=== PATIENT | female | born 1985 | race American Indian/Alaskan Native ===

== ENCOUNTER 2017-08-05 16:31 | Emergency (ER) | payer SELFPAY ==
[2017-08-05 17:57] LABS: Basophils % (Auto) 0.3 % (0.0-1.8); Eosinophils % (Auto) 7.2 % (0.0-4.3); Hematocrit 39.3 % (30.3-42.9); Hemoglobin 13.6 gm/dl (10.1-14.3); Mean Corpuscular HGB Conc 35 % (30-34); Mean Corpuscular Hemoglobin 32 pg (28-32); Mean Corpuscular Volume 92 fl (79-97); Platelet Count 199 K/mm3 (140-440); Red Blood Count 4.27 M/mm3 (3.65-5.03); Red Cell Distribution Width 12.9 % (13.2-15.2); White Blood Count 6.9 K/mm3 (4.5-11.0)
[2017-08-05 18:14] LABS: Alanine Aminotransferase 18 units/L (7-56); Albumin 3.7 g/dL (3.9-5); Albumin/Globulin Ratio 1.3 %; Alkaline Phosphatase 70 units/L (35-129); BUN/Creatinine Ratio 11.66; Blood Urea Nitrogen 7 mg/dL (7-17); Calcium 8.7 mg/dL (8.4-10.2); Carbon Dioxide 23 mmol/L (22-30); Glucose 79 mg/dL (65-100); Total Protein 6.5 g/dL (6.3-8.2)
[2017-08-05] MEDS ORDERED: KEPPRA 1,000 MG in D5W 100 ML IV STA (18:14)
[2017-08-05 18:15] LABS: Anion Gap 16 mmol/L; Chloride 107.3 mmol/L (98-107); Potassium 4.1 mmol/L (3.6-5.0); Sodium 142 mmol/L (137-145)
--- NOTE | 2017-08-05 18:16 | Emergency Department Report ---
ED Seizure HPI - General Chief Complaint: Seizure Stated Complaint: SEIZURES/LUPUS/ASTHMA Time Seen by Provider: 08/05/17 18:09 Source: patient, family, EMS (ems notes not available at time of chart dictation), RN notes reviewed Mode of arrival: [facility] Limitations: No Limitations, Other (patient is a poor historian) - History of Present Illness Initial Comments: This is a 32-year-old female, the patient is previously unknown to me. Patient brought to the hospital by EMS for multiple seizures. As per family and EMS, patient's had 7 seizures today. EMS gave Ativan and Versed in the field. Initially upon arrival to the ER, the patient was sleepy and very good historian. She reports that she recently arrived here from [place], and thinks that she takes keppra. She is not certain what other medication she takes, and her family does not know a medication she takes. The patient complains of mild total body pain. MD Complaint: seizure, shaking -: Sudden Description of Episode: loss of consciousness, tonic-clonic movement -: second(s) Witnessed:: Yes Trauma: No (as per family, and as per EMS) Seizure History: known seizure disorder, history of non-compliance (as per EMS) Possible Precipitating Event: other (medication noncompliance) Associated Symptoms: confusion (initially after seizure) Treatments Prior to Arrival: benzodiazepines - Related Data Home Medications Medication Instructions Recorded Confirmed Last Taken ALBUTEROL Inhaler [Proair] 2 puff IH QID PRN 08/05/17 08/05/17 Unknown Citalopram [celeXA] 20 mg PO BID 08/05/17 08/05/17 08/05/17 Fluticasone/Salmeterol [Advair 1 puff IH BID 08/05/17 08/05/17 08/05/17 Diskus 500-50 mcg] Gabapentin [Neurontin] 300 mg PO BID 08/05/17 08/05/17 08/05/17 Multivitamin Tab [Multiple Vitamin 1 each PO QDAY 08/05/17 08/05/17 08/05/17 TAB (Theragran)] Previous Rx's Medication Instructions Recorded Last Taken Type Topiramate [Topamax] 100 mg PO BID #60 tablet 08/05/17 Unknown Rx Allergies Allergy/AdvReac Type Severity Reaction Status Date / Time carbamazepine [From Tegretol] Allergy Unknown Verified 08/05/17 20:20 latex Allergy Unknown Verified 08/05/17 20:20 Penicillins Allergy Unknown Verified 08/05/17 20:20 ED Review of Systems ROS: Stated complaint: SEIZURES/LUPUS/ASTHMA Other details as noted in HPI Constitutional: malaise, weakness Eyes: denies: vision change ENT: denies: epistaxis Respiratory: denies: cough Cardiovascular: denies: chest pain Genitourinary: denies: dysuria Musculoskeletal: back pain, arthralgia, myalgia Neurological: weakness Psychiatric: as per HPI ED Past Medical Hx - Past Medical History Previous Medical History?: Yes Hx Seizures: Yes Hx Asthma: Yes Additional medical history: Lupus - Surgical History Past Surgical History?: No - Social History Smoking Status: Current Every Day Smoker Substance Use Type: None - Medications Home Medications: Home Medications Medication Instructions Recorded Confirmed Last Taken Type ALBUTEROL Inhaler [Proair] 2 puff IH QID PRN 08/05/17 08/05/17 Unknown History Citalopram [celeXA] 20 mg PO BID 08/05/17 08/05/17 08/05/17 History Fluticasone/Salmeterol [Advair 1 puff IH BID 08/05/17 08/05/17 08/05/17 History Diskus 500-50 mcg] Gabapentin [Neurontin] 300 mg PO BID 08/05/17 08/05/17 08/05/17 History Multivitamin Tab [Multiple Vitamin 1 each PO QDAY 08/05/17 08/05/17 08/05/17 History TAB (Theragran)] Topiramate [Topamax] 100 mg PO BID #60 tablet 08/05/17 Unknown Rx ED Physical Exam - General Limitations: No Limitations General appearance: alert, in no apparent distress - Head Head exam: Present: atraumatic, normocephalic - Eye Eye exam: Present: normal appearance, PERRL, EOMI. Absent: nystagmus - ENT ENT exam: Present: normal exam, normal orophraynx, mucous membranes moist, normal external ear exam, other (there is no tongue biting or tongue laceration) - Neck Neck exam: Present: normal inspection, full ROM. Absent: tenderness, meningismus - Respiratory Respiratory exam: Present: normal lung sounds bilaterally. Absent: respiratory distress, wheezes, rales, rhonchi, stridor, chest wall tenderness, accessory muscle use, decreased breath sounds, prolonged expiratory - Cardiovascular Cardiovascular Exam: Present: regular rate, normal rhythm, normal heart sounds. Absent: bradycardia, tachycardia, irregular rhythm, systolic murmur, diastolic murmur, rubs, gallop - GI/Abdominal GI/Abdominal exam: Present: soft, normal bowel sounds. Absent: distended, tenderness, guarding, rebound, rigid, pulsatile mass - Extremities Exam Extremities exam: Present: normal inspection, full ROM, normal capillary refill. Absent: pedal edema, joint swelling, calf tenderness - Back Exam Back exam: Present: normal inspection, full ROM. Absent: tenderness, CVA tenderness (R), CVA tenderness (L), muscle spasm, paraspinal tenderness, vertebral tenderness - Neurological Exam Neurological exam: Present: alert, oriented X3, normal gait, other (Extraocular movements intact. Tongue midline. No facial droop. Facial sensation intact to light touch in the V1, V2, V3 distribution bilaterally. 5 and 5 strength in 4 extremities.. Sensation is intact to light touch in 4 extremities.). Absent : motor sensory deficit - Psychiatric Psychiatric exam: Present: anxious - Skin Skin exam: Present: warm, dry, intact, normal color. Absent: rash ED Course Vital Signs 08/05/17 08/05/17 08/05/17 16:33 16:52 17:00 Temperature 99 F Pulse Rate 60 55 L 55 L Respiratory 18 16 17 Rate Blood Pressure 96/57 Blood Pressure [Right] O2 Sat by Pulse 99 100 100 Oximetry 08/05/17 08/05/17 08/05/17 17:15 17:31 17:45 Temperature Pulse Rate 57 L 48 L 55 L Respiratory 16 21 16 Rate Blood Pressure Blood Pressure [Right] O2 Sat by Pulse 97 99 97 Oximetry 08/05/17 08/05/17 08/05/17 18:01 18:15 18:31 Temperature Pulse Rate 54 L 46 L 56 L Respiratory 16 14 16 Rate Blood Pressure Blood Pressure [Right] O2 Sat by Pulse 97 99 97 Oximetry 08/05/17 08/05/17 08/05/17 18:45 19:01 19:15 Temperature Pulse Rate 58 L 50 L 53 L Respiratory 15 12 10 L Rate Blood Pressure 135/87 Blood Pressure [Right] O2 Sat by Pulse Oximetry 08/05/17 08/05/17 08/05/17 19:30 19:40 19:45 Temperature Pulse Rate 58 L 66 67 Respiratory 17 20 14 Rate Blood Pressure 128/82 126/92 Blood Pressure 126/92 [Right] O2 Sat by Pulse 99 97 Oximetry 08/05/17 08/05/17 08/05/17 20:01 20:15 20:30 Temperature Pulse Rate 55 L Respiratory 15 Rate Blood Pressure 114/67 128/61 121/71 Blood Pressure [Right] O2 Sat by Pulse 97 99 98 Oximetry 08/05/17 08/05/17 08/05/17 20:45 21:00 21:15 Temperature Pulse Rate Respiratory Rate Blood Pressure 124/63 118/59 116/64 Blood Pressure [Right] O2 Sat by Pulse 96 96 95 Oximetry 08/05/17 08/05/17 08/05/17 21:30 21:45 22:00 Temperature Pulse Rate 55 L Respiratory 20 Rate Blood Pressure 119/64 125/74 127/74 Blood Pressure 127/74 [Right] O2 Sat by Pulse 96 95 96 Oximetry 08/05/17 08/05/17 08/05/17 22:15 22:30 22:45 Temperature Pulse Rate Respiratory Rate Blood Pressure 122/64 126/75 136/74 Blood Pressure [Right] O2 Sat by Pulse 97 97 98 Oximetry 08/05/17 08/05/17 08/05/17 23:01 23:15 23:31 Temperature Pulse Rate Respiratory Rate Blood Pressure 125/63 123/62 136/74 Blood Pressure [Right] O2 Sat by Pulse 99 98 98 Oximetry - Reevaluation(s) Reevaluation #1: 08/05/17 22:37 Patient was able to give the nurse's list of her medications. Given history of poor compliance, I will amend my original plan and only refill Topamax. Patient counseled to follow-up as directed. ED Medical Decision Making - Lab Data Result diagrams: 08/05/17 17:32 08/05/17 17:32 Vital Signs 08/05/17 08/05/17 08/05/17 16:33 16:52 17:00 Temperature 99 F Pulse Rate 60 55 L 55 L Respiratory 18 16 17 Rate Blood Pressure 96/57 Blood Pressure [Right] O2 Sat by Pulse 99 100 100 Oximetry 08/05/17 08/05/17 08/05/17 17:15 17:31 17:45 Temperature Pulse Rate 57 L 48 L 55 L Respiratory 16 21 16 Rate Blood Pressure Blood Pressure [Right] O2 Sat by Pulse 97 99 97 Oximetry 08/05/17 08/05/17 08/05/17 18:01 18:15 18:31 Temperature Pulse Rate 54 L 46 L 56 L Respiratory 16 14 16 Rate Blood Pressure Blood Pressure [Right] O2 Sat by Pulse 97 99 97 Oximetry 08/05/17 08/05/17 08/05/17 18:45 19:01 19:15 Temperature Pulse Rate 58 L 50 L 53 L Respiratory 15 12 10 L Rate Blood Pressure 135/87 Blood Pressure [Right] O2 Sat by Pulse Oximetry 08/05/17 08/05/17 08/05/17 19:30 19:40 19:45 Temperature Pulse Rate 58 L 66 67 Respiratory 17 20 14 Rate Blood Pressure 128/82 126/92 Blood Pressure 126/92 [Right] O2 Sat by Pulse 99 97 Oximetry 08/05/17 08/05/17 08/05/17 20:01 20:15 20:30 Temperature Pulse Rate 55 L Respiratory 15 Rate Blood Pressure 114/67 128/61 121/71 Blood Pressure [Right] O2 Sat by Pulse 97 99 98 Oximetry 08/05/17 08/05/17 08/05/17 20:45 21:00 21:15 Temperature Pulse Rate Respiratory Rate Blood Pressure 124/63 118/59 116/64 Blood Pressure [Right] O2 Sat by Pulse 96 96 95 Oximetry 08/05/17 08/05/17 21:30 22:00 Temperature Pulse Rate 55 L Respiratory 20 Rate Blood Pressure 119/64 Blood Pressure 127/74 [Right] O2 Sat by Pulse 96 98 Oximetry Labs 08/05/17 08/05/17 08/05/17 17:32 17:32 18:47 WBC 6.9 RBC 4.27 Hgb 13.6 Hct 39.3 MCV 92 MCH 32 MCHC 35 H RDW 12.9 L Plt Count 199 Lymph % (Auto) 32.2 [place] % (Auto) 8.2 H Eos % (Auto) 7.2 H Baso % (Auto) 0.3 Lymph # 2.2 [place] # 0.6 Eos # 0.5 H Baso # 0.0 Seg Neutrophils % 52.1 Seg Neutrophils # 3.6 Sodium 142 Potassium 4.1 Chloride 107.3 H Carbon Dioxide 23 Anion Gap 16 BUN 7 Creatinine 0.6 L Estimated GFR > 60 BUN/Creatinine Ratio 11.66 Glucose 79 Calcium 8.7 Total Bilirubin 0.60 AST 21 ALT 18 Alkaline Phosphatase 70 Total Creatine Kinase 481 H Total Protein 6.5 Albumin 3.7 L Albumin/Globulin Ratio 1.3 HCG, Quant Urine Color Urine Turbidity Urine pH Ur Specific [place] Urine Protein Urine Glucose (UA) Urine Ketones Urine Blood Urine Nitrite Ur Reducing Substances Urine Bilirubin Urine Ictotest Urine Urobilinogen Ur Leukocyte Esterase Urine WBC (Auto) Urine RBC (Auto) U Epithel Cells (Auto) Urine Mucus Urine HCG, Qual Salicylates Acetaminophen 08/05/17 08/05/17 08/05/17 18:47 18:47 18:47 WBC RBC Hgb Hct MCV MCH MCHC RDW Plt Count Lymph % (Auto) [place] % (Auto) Eos % (Auto) Baso % (Auto) Lymph # [place] # Eos # Baso # Seg Neutrophils % Seg Neutrophils # Sodium Potassium Chloride Carbon Dioxide Anion Gap BUN Creatinine Estimated GFR BUN/Creatinine Ratio Glucose Calcium Total Bilirubin AST ALT Alkaline Phosphatase Total Creatine Kinase Total Protein Albumin Albumin/Globulin Ratio HCG, Quant < 2 Urine Color Urine Turbidity Urine pH Ur Specific [place] Urine Protein Urine Glucose (UA) Urine Ketones Urine Blood Urine Nitrite Ur Reducing Substances Urine Bilirubin Urine Ictotest Urine Urobilinogen Ur Leukocyte Esterase Urine WBC (Auto) Urine RBC (Auto) U Epithel Cells (Auto) Urine Mucus Urine HCG, Qual Salicylates < 0.3 L Acetaminophen < 15.0 08/05/17 20:22 WBC RBC Hgb Hct MCV MCH MCHC RDW Plt Count Lymph % (Auto) [place] % (Auto) Eos % (Auto) Baso % (Auto) Lymph # [place] # Eos # Baso # Seg Neutrophils % Seg Neutrophils # Sodium Potassium Chloride Carbon Dioxide Anion Gap BUN Creatinine Estimated GFR BUN/Creatinine Ratio Glucose Calcium Total Bilirubin AST ALT Alkaline Phosphatase Total Creatine Kinase Total Protein Albumin Albumin/Globulin Ratio HCG, Quant Urine Color Yellow Urine Turbidity Clear Urine pH 5.0 Ur Specific [place] 1.021 Urine Protein <15 mg/dl Urine Glucose (UA) Neg Urine Ketones Neg Urine Blood Neg Urine Nitrite Neg Ur Reducing Substances Not Reportable Urine Bilirubin Neg Urine Ictotest Not Reportable Urine Urobilinogen < 2.0 Ur Leukocyte Esterase Neg Urine WBC (Auto) 1.0 Urine RBC (Auto) 4.0 U Epithel Cells (Auto) 2.0 Urine Mucus Few Urine HCG, Qual Negative Salicylates Acetaminophen - Radiology Data Radiology results: report reviewed, image reviewed Noncontrast CT scan of the brain is negative. X-ray the chest is negative. - Medical Decision Making Differential diagnosis: Pneumonia, urinary tract infection, post ictal state, medication noncompliance, myositis Assessment and plan: 32-year-old female with reported history of multiple seizures. She is initially postictal, and is loaded with 1 g of Keppra. Patient observed in the ER for prolonged period of time without clinical decompensation. No additional seizures noted in the emergency department, patient currently clinically sober, walks with a steady gait, has a GCS of 15, with an NIH score of 0. I will discharge the patient with a one-month prescription for antiepileptic drugs, she is instructed to follow up with outpatient primary care doctor or neurology specialist as soon as possible, and the patient is instructed to not drive or operate motor vehicles for the next 6 months. Critical care attestation.: If time is entered above; I have spent that time in minutes in the direct care of this critically ill patient, excluding procedure time. ED Disposition Clinical Impression: Seizure Disposition: [id number] TO HOME OR SELFCARE Is pt being admited?: No Does the pt Need Aspirin: No Condition: Stable Instructions: Recurrent Seizures Adult (ED) Additional Instructions: Take the medication as directed. Follow up with an outpatient primary care doctor or neurology specialist within the next 7-10 [address] a car or operate motor vehicles for the next 6 months. It is very important to follow -up with an outpatient specialist or primary care doctor as directed for maintenance of antiepileptic drug therapy, and it is important to know that noncompliance and not taking your seizure medication may result in breakthrough seizure, which in turn can cause , disability, paralysis, loss of quality of life. Return to the ER right away with new pain, worsened pain, migration of pain, fevers, chills, confusion, intractable nausea or vomiting, inability to tolerate liquid feeds. Prescriptions: Topiramate [Topamax] 100 mg PO BID #60 tablet Referrals: PRIMARY MD JUAN [Primary Care Provider] - 3-5 Days GLORIA LATHAM MD [Staff Physician] - 3-5 Days DEYSI LIZ MD [Staff Physician] - 3-5 Days AASHISH HUITRON MD [Staff Physician] - 3-5 Days TERENCE NASH MD [Staff Physician] - 3-5 Days
[2017-08-05] MEDS ORDERED: KEPPRA 1,000 MG/NS 0.75% 100ML 1,000 MG/100 ML BAG IV STA (18:17)
--- NOTE | 2017-08-05 20:37 | Cat Scan Report ---
FINAL REPORT EXAM: CT HEAD/BRAIN WO CON HISTORY: seizure ams TECHNIQUE: Noncontrast CT axial images of the brain. PRIORS: None. FINDINGS: No parenchymal mass, mass effect, hemorrhage, midline shift or hydrocephalus. No evidence of acute cortical infarct. No abnormal, extra-axial fluid or air collection. Osseous calvarium grossly intact. Mucosal thickening in the ethmoid sinuses. IMPRESSION: 1. No acute intracranial findings.
[2017-08-05 20:55] LABS: Bilirubin,Urine NEG (Negative); Blood,Urine NEG (Negative); Ketones,Urine NEG (Negative); Leukocyte Esterase,Urine NEG (Negative); Mucus,Urine FEW /HPF; Nitrite,Urine NEG (Negative); Protein,Urine <15 mg/dL mg/dL (Negative); Urobilinogen,Urine < 2.0 mg/dL (<2.0)
[2017-08-05] MEDS ORDERED: TOPAMAX PO ONE (22:37)
[2017-08-05 23:44] VITALS: BP 136/74
--- NOTE | 2017-08-06 10:19 | XRay Report ---
AP CHEST :08/05/17 16:31:00 CLINICAL: Seizure. COMPARISON:None. FINDINGS: Normal heart and pulmonary vasculature. The lungs are normally expanded and clear. The bones and soft tissues are normal. IMPRESSION: Normal chest.
== END 2017-08-05 23:44 | disposition home or self-care (01) ==
LOC: ED 16:31
DX: R56.9 Unspecified convulsions (principal); J45.909 Unspecified asthma, uncomplicated; F17.200 Nicotine dependence, unspecified, uncomplicated; Z88.0 Allergy status to penicillin; Z91.040 Latex allergy status
CPT/HCPCS: 36415; 51701; 70450; 71010; 80053; 81001; 81025; 82550; 84702; 85025; 96365; 99285; G0480; J1953; 80320